=== PATIENT | female | born 1970 | race Caucasian/White ===

== ENCOUNTER 2017-07-19 11:17 | Emergency (ER) | payer SELFPAY ==
[2017-07-19] MEDS ORDERED: LORazepam 2 MG/ML VIAL ONE (11:30)
[2017-07-19] MEDS: LORazepam 2 MG/ML VIAL IVP ONE (11:36)
[2017-07-19 11:55] LABS: BASOPHILS % 0.5 (0.0-1.5); EOSINOPHILS % 1.3 % (0.0-6.8); MEAN CORPUSCULAR HEMOGLOBIN 27.6 pg (28.0-34.0); MEAN CORPUSCULAR VOLUME 87.3 fl (80.0-100.0); MONOCYTES % 4.1 % (0.0-11.0); NEUTROPHILS # 7.4 # k/uL (1.4-7.7)
[2017-07-19 12:11] LABS: eGFR (African) > 60; eGFR (Non-African) > 60
[2017-07-19] MEDS: FUROSEMIDE 40 MG/4 ML VIAL IVP ONE (13:01)
[2017-07-19] MEDS ORDERED: METOPROLOL TARTRATE 50 MG TABLET ONE (13:03)
[2017-07-19] MEDS: METOPROLOL SUCCINATE 50 MG TAB.ER.24H PO ONE (13:08)
--- NOTE | 2017-07-19 13:20 | ED Physician Documentation ---
Dyspnea - HISTORIAN Historian: patient, paramedics - HPI Stated Complaint: SOA Chief Complaint: General Adult Onset: minutes Duration: better Severity: moderate Further Comments: yes (Pt is a 47 yo female who became lightheaded and sob during her court hearing this am. Pt had mild nausea, but no chest pain and no diaphoresis. Pt has hx COPD, CHF, Anxiety, Depression, and HTN. Pt has a smoking hx, but now smokes about 1/2 ppd. Pt was dx'd with bronchitis last week , but was unable to afford to fill the abx medication rx'd. Pt had been on Lisionopril for HTN, but also has not filled this for some time due to cost.) - ROS CONST: other (anxious) EYES/ENT: none GI/: nausea (mild) MS/SKIN/LYMPH: none - PAST HX Lung Disease: COPD Cardiac Disease: CHF PE Risk Factors: hypertension Other History: other (Anxiety/Depression, HTN) Allergies/Adverse Reactions: Allergies Allergy/AdvReac Type Severity Reaction Status Date / Time No Known Allergies Allergy Verified 07/19/17 11:33 Home Medications: Ambulatory Orders Medication Instructions Recorded Ciprofloxacin HCl [Cipro] 500 mg PO BID #20 tablet 07/19/17 Metoprolol Tartrate [Lopressor] 50 mg PO BID #60 tablet 07/19/17 - SOCIAL HX Smoking History: cigarettes - FAMILY HX Family History: none - VITAL SIGNS Vital Signs: Vital Signs Temp Pulse Resp BP Pulse Ox 99.0 F 93 H 19 176/114 94 07/19/17 11:25 07/19/17 13:00 07/19/17 11:25 07/19/17 11:25 07/19/17 13:00 - REVIEWED ASSESSMENTS Nursing Assessment Reviewed: Yes Vitals Reviewed: Yes Progress - Progress Progress: Ativan 1 mg IV anxiety improved CXR: Bilateral hazy infiltrates with likely left base effusion. pro-BNP = 4548.5 Lasix 40 mg IV BP 176/114 Toprol 50 mg po BP 132/88 Rx Metoprolol 50 mg. Take one by mouth twice daily. Disp: 60 Refills: 5.. Rx Ciprofloxacin 500 mg. Take one every 12 hrs for 10 days. Follow up at [facility] Tel. [phone]. Call for next available appointment. Discuss shortness of breath, CHF, and hypertension. ED Results Lab/Radiology - Lab Results Lab Results: Lab Results 07/19/17 07/19/17 07/19/17 11:50 11:50 11:50 WBC RBC Hgb Hct MCV MCH MCHC RDW Plt Count Neut % (Auto) Lymph % (Auto) Nolan % (Auto) Eos % (Auto) Baso % (Auto) Neut # (Auto) Lymph # (Auto) Nolan # (Auto) Eos # (Auto) Baso # (Auto) Reactive Lymphs % Reactive Lymphs # Sodium 135 mmol/L L mmol/L (137-145) Potassium 3.4 mmol/L L mmol/L (3.5-5.1) Chloride 97 mmol/L L mmol/L (98-107) Carbon Dioxide 32 mmol/L H mmol/L (22-30) BUN 13 mg/dL mg/dL (7-17) Creatinine 0.90 mg/dL mg/dL (0.52-1.04) Estimated Creat Clear 331 Est GFR ( Amer) > 60 (60 - ) Est GFR (Non-Af Amer) > 60 (60 - ) Glucose 102 mg/dL mg/dL (74-106) Calcium 8.1 mg/dL L mg/dL (8.4-10.2) Total Bilirubin 0.7 mg/dL mg/dL (0.2-1.3) AST 22 U/L U/L (15-46) ALT 33 U/L U/L (13-69) Alkaline Phosphatase 107 U/L U/L (38-126) Creatine Kinase 40 U/L U/L (30-135) Troponin I 0.04 ng/mL ng/mL (0.03-0.06) NT-Pro-B Natriuret Pep 4548.5 pg/mL H pg/mL (15.0-125.0) Total Protein 6.9 g/dL g/dL (6.3-8.2) Albumin 3.1 g/dL L g/dL (3.5-5.0) 07/19/17 11:50 WBC 9.90 K/ul K/ul (4.00-12.00) RBC 6.02 M/ul H M/ul (3.90-5.20) Hgb 16.6 g/dL H g/dL (12.0-16.0) Hct 52.5 % H % (34.5-46.5) MCV 87.3 fl fl (80.0-100.0) MCH 27.6 pg L pg (28.0-34.0) MCHC 31.6 g/dL g/dL (30.0-36.0) RDW 15.6 % H % (11.3-14.3) Plt Count 220 K/mm3 K/mm3 (130-400) Neut % (Auto) 74.4 % % (39.0-79.0) Lymph % (Auto) 18.3 % % (16.0-50.0) Nolan % (Auto) 4.1 % % (0.0-11.0) Eos % (Auto) 1.3 % % (0.0-6.8) Baso % (Auto) 0.5 (0.0-1.5) Neut # (Auto) 7.4 # k/uL # k/uL (1.4-7.7) Lymph # (Auto) 1.8 # k/uL # k/uL (0.6-4.0) Nolan # (Auto) 0.4 # k/uL # k/uL (0.0-0.9) Eos # (Auto) 0.1 # k/uL # k/uL (0.0-0.6) Baso # (Auto) 0.0 # k/uL # k/uL (0.0-0.5) Reactive Lymphs % 1.4 % % (0.0-5.0) Reactive Lymphs # 0.1 # k/uL # k/uL (0.0-0.8) Sodium Potassium Chloride Carbon Dioxide BUN Creatinine Estimated Creat Clear Est GFR ( Amer) Est GFR (Non-Af Amer) Glucose Calcium Total Bilirubin AST ALT Alkaline Phosphatase Creatine Kinase Troponin I NT-Pro-B Natriuret Pep Total Protein Albumin - Orders Orders: ED Orders Category Date Time Status Continuous EKG monitoring Q30M Care 07/19/17 11:29 Active Continuous Pulse Oximetry Q30M Care 07/19/17 11:[address] IV Lock 1T Care 07/19/17 11:30 Active CHEST 1 VIEW [RAD] Stat Exams 07/19/17 11:29 Taken BNP [NT-proBNP] Stat Lab 07/19/17 11:50 Completed CBC/PLATELET/DIFF Routine Lab 07/19/17 11:50 Completed CMP Routine Lab 07/19/17 11:50 Completed CREATINE KINASE Routine Lab 07/19/17 11:50 Completed TROPONIN I (cTnI) Stat Lab 07/19/17 11:50 Completed Furosemide [Lasix] Med 07/19/17 12:48 Discontinued 40 mg IVP NOW ONE LORazepam [Ativan] Med 07/19/17 11:30 Discontinued 1 mg IVP NOW ONE LORazepam [Ativan] Med 07/19/17 11:30 Discontinued 2 mg .ROUTE .STK-MED ONE Metoprolol Succinate [Toprol Xl] Med 07/19/17 13:03 Discontinued 50 mg PO NOW ONE Metoprolol Tartrate [Lopressor] Med 07/19/17 13:03 Discontinued 50 mg .ROUTE .STK-MED ONE Oxygen Daily Oxygen 07/19/17 11:30 Ordered EKG WITH COMPARISON Stat Ther 07/19/17 11:29 Ordered Dyspnea Physical Exam - EXAM General Appearance: anxious EENT: pharynx normal Neck: nml inspection Respiratory: no resp. distress, other (distant breath sounds) CVS: reg. rate & rhythm, no murmur Abdomen: non-tender, no organomegaly, no distention Skin: color nml, no rash Extremities: non-tender, normal range of motion, no evidence of injury Neuro/Psych: oriented x3, motor nml, sensation nml, other (anxious) Discharge Clincal Impression: Dyspnea, CHF, possible infiltrate HTN (hypertension) Qualifiers: Hypertension type: unspecified Qualified Code(s): I10 - Essential (primary) hypertension Prescriptions: Ciprofloxacin HCl [Cipro] 500 mg PO BID #20 tablet Metoprolol Tartrate [Lopressor] 50 mg PO BID #60 tablet Referrals: Primary Doctor,No [Primary Care Provider] - 2 Days Condition: Stable Disposition: HOME, SELF-CARE Decision to Admit: NO Decision Time: 14:10
[2017-07-19] MEDS: CIPROFLOXACIN HCL 500 MG TABLET PO ONE (14:08)
[2017-07-19 14:13] VITALS: BP 154/102
--- NOTE | 2017-07-19 15:34 | Diagnostic Imaging Report ---
MAXIMILIANO SIMMS [facility] [address] [facility] [address] [place], [place]. [address] Report Submission Date: Jul 19, 2017 12:19:18 PM CDT Patient Study Name: AUGUSTINA SOMERS Date: Jul 19, 2017 12:04:05 PM CDT Modality Type: CR Gender: F Description: CHEST : 66 Institution: [facility] Physician: MAXIMILIANO SIMMS Examination: Portable chest History: Chest discomfort Comparison exam: None available Findings: Single view of the chest demonstrates a prominent cardiac and mediastinal silhouette. Tortuous aorta. Lung zheng demonstrate parenchymal haziness. Obscuration of the left lung base. Osseous structures are appropriate for age. Impression: Bilateral hazy infiltrates with likely left base effusion. Electronically signed on Jul 19, 2017 12:19:18 PM CDT by: Ernesto BARRIOS
== END 2017-07-19 14:10 | disposition home or self-care (01) ==
LOC: ED 11:17
DX: R06.00 Dyspnea, unspecified (principal); I50.9 Heart failure, unspecified; I10 Essential (primary) hypertension
CPT/HCPCS: 71010; 80053; 82550; 83880; 84484; 85025; J1940; J2060; 96374; 96375; 99284

== ENCOUNTER 2017-09-30 15:07 | Emergency (ER) | payer SELFPAY ==
--- NOTE | 2017-09-30 16:09 | ED Physician Documentation ---
Dyspnea - HISTORIAN Historian: patient - HPI Stated Complaint: bilat leg pain Chief Complaint: Lower Extremity Problem Additional Information: hx chf obesity now marked leg edema sob stasis dermatitis ulceration-only meds= metoprolol-continues to smoke Onset: other (progressive since before . Pt sstated not enough money for meds kathrin since [facility]) Duration: continues in ED, worse Initiating Event: upper respiratory illness (sob), out of meds, exposure to smoke Severity: moderate Exacerbated By: exertion, coughing, other (does not keep legs elevated and when she doed she sits upright w/chest-heart higher than legs) Associated Symptoms: chest discomfort, productive cough, leg pain, calf pain, anxiety - ROS CONST: recent illness, weakness EYES/ENT: none GI/: denies: abdominal pain, problems urinating, vomiting, nausea MS/SKIN/LYMPH: none - PAST HX Lung Disease: COPD, other (CHF ZAKI-NO C-PAP DEPRESSION ANXIETY COPC MORBID OBESITY [id number]) PE Risk Factors: hypertension, leg swelling. denies: hx DVT Surgeries/Procedures: other (C SECT) Allergies/Adverse Reactions: Allergies Allergy/AdvReac Type Severity Reaction Status Date / Time No Known Allergies Allergy Verified 09/30/17 15:33 Home Medications: Ambulatory Orders Medication Instructions Recorded Metoprolol Tartrate [Lopressor] 50 mg PO BID #60 tablet 07/19/17 Furosemide [Lasix] 20 mg PO DAILY 60 Days #30 tablet 09/30/17 Lisinopril [Zestril] 5 mg PO D #30 tablet 09/30/17 - SOCIAL HX Smoking History: less than 1 pack/day Alcohol Use: none Drug Use: none - FAMILY HX Family History: no significant history - VITAL SIGNS Vital Signs: Vital Signs Temp Pulse Resp BP Pulse Ox 98.2 F 82 28 H 213/111 94 09/30/17 15:21 09/30/17 15:21 09/30/17 15:21 09/30/17 15:21 09/30/17 15:21 - REVIEWED ASSESSMENTS Nursing Assessment Reviewed: Yes Vitals Reviewed: Yes ED Results Lab/Radiology - Radiology Radiology Impressions: cxr = cardiomegally suspect chf-correlates w/hi BNP - Orders Orders: ED Orders Category Date Time Status CHEST P.A.&LAT 2 VIEWS [RAD] Stat Exams 09/30/17 Ordered BNP [NT-proBNP] Stat Lab 09/30/17 Ordered CBC/PLATELET/DIFF Routine Lab 09/30/17 Ordered CMP Routine Lab 09/30/17 Ordered EKG WITH COMPARISON Stat Ther 09/30/17 Ordered Dyspnea Physical Exam - EXAM General Appearance: moderate distress EENT: eye inspection normal Neck: nml inspection Respiratory: speaks full sentences, decreased air movement, wheezes, rales, rhonchi. No: breath sounds nml, stridor, no pleuritic chest pain CVS: reg. rate & rhythm, no murmur Abdomen: non-tender, other (obesity) Skin: color nml, cyanosis (lower legs), ecchymosis, skin rash, decubitus, other (rubor draining sores legs). No: no rash (legs) Extremities: edema, tenderness. No: normal range of motion, no edema Neuro/Psych: oriented x3, motor nml, sensation nml, depressed mood/affect ( cries when talks about financial lives w/ childred dt lack funds-appears to not have aggresively sought assistance.) Discharge Clincal Impression: CHF, MORBID OBESITY, MILD AZOTEMIA, HTN Prescriptions: Furosemide [Lasix] 20 mg PO DAILY 60 Days #30 tablet Lisinopril [Zestril] 5 mg PO D #30 tablet Referrals: Primary Doctor,No [Primary Care Provider] - 2 Days Comments: USING LISINOPRIL FOR PRE LOAD AND AFTERLOAD-PT HAS MILD AZOTEMIA BUT BELIEVE MED SATIS AND THIS DOSE AND MILD AZOTEMIAALSO LASIX--TO SEE PCP VERY SOON OR RTED PRN F/U Condition: Fair Disposition: 01 HOME, SELF-CARE Decision to Admit: NO Decision Time: 17:52
[2017-09-30 16:40] LABS: BASOPHILS % 0.5 (0.0-1.5); EOSINOPHILS % 2.4 % (0.0-6.8); MEAN CORPUSCULAR HEMOGLOBIN 28.4 pg (28.0-34.0); MONOCYTES % 4.1 % (0.0-11.0); NEUTROPHILS # 6.9 # k/uL (1.4-7.7)
[2017-09-30 16:48] LABS: eGFR (African) > 60; eGFR (Non-African) > 60
--- NOTE | 2017-09-30 17:11 | Diagnostic Imaging Report ---
[facility] [address] [facility].[address] [address] Report Submission Date: Sep 30, 2017 4:54:37 PM TWISTER DOFFER Patient Study Name: AUGUSTINA SOMERS Date: Sep 30, 2017 4:32:14 PM TWISTER DOFFER Modality Type: CR Gender: F Description: CHEST : 66 Institution: [facility] Physician: JERALD WARREN Examination: PA and lateral chest. History: Evaluate lung zheng. Comparison exam: 19 July 2017 Findings: PA lateral chest demonstrate a enlarged cardiac silhouette. Prominent hilum. Generalized interstitial fullness. No blunting of the costophrenic margins or posterior sulci. Osseous structures are appropriate for age. Impression: Cardiomegaly with increased interstitial fullness suggesting increased volume status/congestive failure. Correlate clinically. Electronically signed on Sep 30, 2017 4:54:37 PM TWISTER DOFFER by: Ernesto BARRIOS
[2017-09-30 17:56] VITALS: BP 162/94
== END 2017-09-30 17:54 | disposition home or self-care (01) ==
LOC: ED 15:07
DX: I11.0 Hypertensive heart disease with heart failure (principal); I50.9 Heart failure, unspecified; E66.01 Morbid (severe) obesity due to excess calories; R79.89 Other specified abnormal findings of blood chemistry
CPT/HCPCS: 71020; 80053; 83880; 85025; 99283; S1016

== ENCOUNTER 2018-01-30 16:09 | Emergency (ER) | payer OTHER ==
--- NOTE | 2018-01-30 16:29 | ED Physician Documentation ---
General Adult - HISTORIAN Historian: patient - HPI Chief Complaint: General Adult Additional Information: 47yo white female who states that while at work today who became diaphoretic, dyspnea, and felt like her blood was going up. When BP was checked it was 171/ 146. - ROS CONST: no problems - PAST HX Past History: COPD, other (ZAKI, HTN, Chronic bronchitis, OA intermittent tachycardia) Surgeries/Procedures: none Immunizations: referred to PCP Allergies/Adverse Reactions: Allergies Allergy/AdvReac Type Severity Reaction Status Date / Time No Known Allergies Allergy Verified 01/30/18 16:34 Home Medications: Ambulatory Orders Medication Instructions Recorded Albuterol Sulfate [Proair 2 puff INH Q4 01/30/18 Respiclick] Amlodipine Besylate/Benazepril 2 tab PO DAILY 01/30/18 [Amlodipine-Benazepril 5-10 mg] Furosemide [Lasix] 90 mg PO TID 01/30/18 Lisinopril [Zestril] 40 mg PO D 01/30/18 Metformin HCl [Glumetza] 500 mg PO BID 01/30/18 Metoprolol Tartrate [Lopressor] 200 mg PO BID 01/30/18 Warfarin Sodium [Coumadin] 2.5 mg PO DAILY 01/30/18 - SOCIAL HX Smoking History: non-smoker Alcohol Use: none Drug Use: none - FAMILY HX Family History: Yes - VITAL SIGNS Vital Signs: Vital Signs Temp Pulse Resp BP Pulse Ox 162/94 09/30/17 17:54 - REVIEWED ASSESSMENTS Nursing Assessment Reviewed: Yes Vitals Reviewed: Yes Progress - Progress Progress: 1503 BP is down to normal, patient is feeling better. General Adult Physical Exam - PHYSICAL EXAM GENERAL APPEARANCE: no distress EENT: ENT inspection normal NECK: normal inspection, supple. No: lymphadenopathy, stiff neck RESPIRATORY: no resp distress, chest non-tender, breath sounds normal. No: wheezes, rales, rhonchi CVS: reg rate & rhythm, heart sounds normal, equal pulses, no murmur, no gallop ABDOMEN: soft, no organomegaly, normal bowel sounds, no abdominal bruit, no distension, non-tender BACK: normal inspection, no CVA tenderness SKIN: warm/dry EXTREMITIES: no edema NEURO: oriented X3, mood/affect nml, cognition normal Discharge Clincal Impression: Hypertension Qualifiers: Hypertension type: essential hypertension Qualified Code(s): I10 - Essential ( primary) hypertension Referrals: Primary Doctor,No [Primary Care Provider] - 2 Days Additional Instructions: Home and rest. Get established with a primary care provider to help regulate your medication and to monitor your blood pressure. If you have any further problems to return to the ED. Condition: Stable Disposition: 01 HOME, SELF-CARE Decision to Admit: NO Date of Decison to Admit: 01/30/18 Decision Time: 17:44
[2018-01-30 16:45] LABS: BASOPHILS % 0.5 (0.0-1.5); EOSINOPHILS % 1.6 % (0.0-6.8); MEAN CORPUSCULAR HEMOGLOBIN 29.1 pg (28.0-34.0); NEUTROPHILS # 7.4 # k/uL (1.4-7.7)
[2018-01-30 16:56] LABS: eGFR (African) > 60; eGFR (Non-African) > 60
[2018-01-30 18:02] VITALS: BP 138/86
== END 2018-01-30 18:00 | disposition home or self-care (01) ==
LOC: ED 16:09
DX: I10 Essential (primary) hypertension (principal)
CPT/HCPCS: 80053; 84484; 85025; 99282; S1016

== ENCOUNTER 2018-02-27 16:47 | Outpatient (CLI) | payer OTHER ==
[2018-02-27 17:21] LABS: BASOPHILS % 0.4 (0.0-1.5); EOSINOPHILS % 1.7 % (0.0-6.8); MEAN CORPUSCULAR HEMOGLOBIN 28.8 pg (28.0-34.0); MEAN CORPUSCULAR VOLUME 90.9 fl (80.0-100.0); MONOCYTES % 4.7 % (0.0-11.0); NEUTROPHILS # 5.3 # k/uL (1.4-7.7)
[2018-02-27 17:31] LABS: eGFR (African) > 60; eGFR (Non-African) > 60
--- NOTE | 2018-02-27 18:15 | Diagnostic Imaging Report ---
HERNESTO CANTOR [facility] [address] [facility] [address] [place] [address]. [id number] Report Submission Date: Feb 27, 2018 5:30:29 PM CDT Patient Study Name: AUGUSTINA SOMERS Date: Feb 27, 2018 4:59:27 PM CDT Modality Type: DX Gender: F Description: ABDOMEN : 66 Institution: [facility] Physician: HERNESTO CANTOR Obstructive series History: Abdominal pain Flat and upright views of the abdomen were obtained which demonstrate the presence of the gallbladder filled with numerable stones. No free air is seen. Lung bases are clear. The heart is enlarged. The bowel gas pattern is nonobstructive. Aside from gallstones, no abnormal calcifications are noted. Impression: Cholelithiasis. The gallbladder is filled with multiple stones. Cardiomegaly. Nonobstructive bowel gas pattern. Electronically signed on Feb 27, 2018 5:30:29 PM CDT by: Hermelinda BARRIOS
== END 2018-02-27 16:50 ==
LOC: LAB 16:47
PROVIDERS: ATTEND Physician Assistant
DX: R10.84 Generalized abdominal pain (principal)
CPT/HCPCS: 36415; 74019; 80053; 85025

== ENCOUNTER 2018-03-15 01:13 | Emergency (ER) | payer OTHER ==
[2018-03-15 01:52] LABS: BASOPHILS % 0.5 (0.0-1.5); EOSINOPHILS % 2.6 % (0.0-6.8); MEAN CORPUSCULAR HEMOGLOBIN 29.2 pg (28.0-34.0); MEAN CORPUSCULAR VOLUME 91.2 fl (80.0-100.0); MONOCYTES % 4.9 % (0.0-11.0); NEUTROPHILS # 6.3 # k/uL (1.4-7.7)
[2018-03-15 02:02] LABS: eGFR (African) > 60; eGFR (Non-African) > 60
[2018-03-15] MEDS ORDERED: MORPHINE SULFATE 10 MG/ML CARTRIDGE IVP ONE (02:02)
[2018-03-15] MEDS ORDERED: ONDANSETRON HCL/PF 4 MG/ 2ML VIAL IVP ONE (02:08)
--- NOTE | 2018-03-15 02:31 | ED Physician Documentation ---
General Adult - HISTORIAN Historian: patient - HPI Stated Complaint: ABD PAIN Chief Complaint: General Adult Additional Information: Recently diagnosed with gall stones. Has appointment today with Dr. Miller, surgeon, [facility]. Comes because an episode of increased abdominal pain began at 1530 yesterday. She has not taken any meds for this as she didn't know what to take. Points to entire right lower quadrant as site of pain, that feels like someone has hit her. The pain is not cramping and does not radiate. Last normal bowel movement just prior to arrival in ER. - ROS CONST: denies: fever - PAST HX Past History: hypertension, other (atrial fibrillation, ZAKI, COPD, NIDDM) Allergies/Adverse Reactions: Allergies Allergy/AdvReac Type Severity Reaction Status Date / Time No Known Allergies Allergy Verified 03/15/18 01:30 Home Medications: Ambulatory Orders Medication Instructions Recorded Albuterol Sulfate [Proair 2 puff INH Q4 01/30/18 Respiclick] Amlodipine Besylate/Benazepril 2 tab PO DAILY 01/30/18 [Amlodipine-Benazepril 5-10 mg] Furosemide [Lasix] 90 mg PO TID 01/30/18 Lisinopril [Zestril] 40 mg PO D 01/30/18 Metformin HCl [Glumetza] 500 mg PO BID 01/30/18 Metoprolol Tartrate [Lopressor] 200 mg PO BID 01/30/18 Warfarin Sodium [Coumadin] 2.5 mg PO DAILY 01/30/18 - SOCIAL HX Smoking History: cigarettes (1/2 PPD since 14 y/o) - FAMILY HX Family History: No - VITAL SIGNS Vital Signs: Vital Signs Temp Pulse Resp BP Pulse Ox 98.2 F 101 H 20 144/85 94 03/15/18 01:13 03/15/18 01:13 03/15/18 01:13 03/15/18 01:13 03/15/18 01:13 - REVIEWED ASSESSMENTS Nursing Assessment Reviewed: Yes Vitals Reviewed: Yes Progress - Progress Progress: 0238, better after romulo MERCER. Placed on O2 per RN. Pulse ox on ambient air 91- 92%. ED Results Lab/Radiology - Lab Results Lab Results: Lab Results 03/15/18 03/15/18 03/15/18 01:59 01:48 01:48 WBC 10.10 K/ul K/ul (4.00-12.00) RBC 5.37 M/ul H M/ul (3.90-5.20) Hgb 15.7 g/dL g/dL (12.0-16.0) Hct 49.0 % H % (34.5-46.5) MCV 91.2 fl fl (80.0-100.0) MCH 29.2 pg pg (28.0-34.0) MCHC 32.0 g/dL g/dL (30.0-36.0) RDW 14.9 % H % (11.3-14.3) Plt Count 222 K/mm3 K/mm3 (130-400) Neut % (Auto) 62.2 % % (39.0-79.0) Lymph % (Auto) 28.4 % % (16.0-50.0) Tyler % (Auto) 4.9 % % (0.0-11.0) Eos % (Auto) 2.6 % % (0.0-6.8) Baso % (Auto) 0.5 (0.0-1.5) Neut # (Auto) 6.3 # k/uL # k/uL (1.4-7.7) Lymph # (Auto) 2.8 # k/uL # k/uL (0.6-4.0) Tyler # (Auto) 0.5 # k/uL # k/uL (0.0-0.9) Eos # (Auto) 0.3 # k/uL # k/uL (0.0-0.6) Baso # (Auto) 0.0 # k/uL # k/uL (0.0-0.5) Reactive Lymphs % 1.4 % % (0.0-5.0) Reactive Lymphs # 0.1 # k/uL # k/uL (0.0-0.8) PT 11.3 Seconds Seconds (9.4-11.6) INR 1.08 (0.9-1.2) Sodium 135 mmol/L L mmol/L (136-145) Potassium 3.7 mmol/L mmol/L (3.5-5.1) Chloride 98 mmol/L mmol/L (98-107) Carbon Dioxide 30 mmol/L mmol/L (22-30) BUN 17 mg/dL mg/dL (7-17) Creatinine 1.30 mg/dL H mg/dL (0.52-1.04) Estimated Creat Clear 106 Est GFR ( Amer) > 60 (60 - ) Est GFR (Non-Af Amer) > 60 (60 - ) Glucose 132 mg/dL H mg/dL (74-106) Calcium 8.8 mg/dL mg/dL (8.4-10.2) Total Bilirubin 0.4 mg/dL mg/dL (0.2-1.3) AST 19 U/L U/L (15-46) ALT 23 U/L U/L (13-69) Alkaline Phosphatase 105 U/L U/L (38-126) Total Protein 7.3 g/dL g/dL (6.3-8.2) Albumin 3.7 g/dL g/dL (3.5-5.0) - Orders Orders: ED Orders Category Date Time Status Place IV Lock 1T Care 03/15/18 01:46 Active CBC/PLATELET/DIFF Routine Lab 03/15/18 01:48 Completed CMP Routine Lab 03/15/18 01:48 Completed PT [PT-INR] Routine Lab 03/15/18 01:59 Completed UA [URINALYSIS] Routine Lab 03/15/18 Ordered Morphine Sulfate Med 03/15/18 02:02 Discontinued 4 mg IVP NOW ONE Ondansetron HCl/Pf [Zofran 4 mg/2 ml] Med 03/15/18 02:08 Discontinued 4 mg IVP NOW ONE General Adult Physical Exam - PHYSICAL EXAM GENERAL APPEARANCE: obese EENT: eye inspection normal, ENT inspection normal NECK: normal inspection, supple RESPIRATORY: no resp distress, breath sounds normal CVS: reg rate & rhythm, heart sounds normal ABDOMEN: soft, normal bowel sounds, tenderness ([place] ) BACK: normal inspection, no CVA tenderness, other (no vertebral tenderness) SKIN: warm/dry, normal color, other (lower extremities with increased pigmentation) EXTREMITIES: no evidence of injury NEURO: CN's nml as tested, motor nml, sensation nml, cognition normal Discharge Clincal Impression: Abdominal pain Qualifiers: Abdominal location: right lower quadrant Qualified Code(s): R10.31 - Right lower quadrant pain Referrals: Primary Doctor,No [Primary Care Provider] - 2 Days Additional Instructions: Keep your appointment with Dr. Miller today. Condition: Fair Disposition: 01 HOME, SELF-CARE Decision to Admit: NO Decision Time: 02:38
[2018-03-15 03:00] VITALS: BP 149/87
== END 2018-03-15 02:54 | disposition home or self-care (01) ==
LOC: ED 01:13
DX: R10.31 Right lower quadrant pain (principal)
CPT/HCPCS: 80053; 85025; 85610; J2270; J2405; 96374; 96375; 99284; S1016

== ENCOUNTER 2018-03-18 19:21 | Emergency (ER) | payer OTHER ==
--- NOTE | 2018-03-18 19:25 | ED Physician Documentation ---
Abdominal Pain - HISTORIAN Historian: patient - HPI Stated Complaint: RUQ pain - gallstones Chief Complaint: Abdominal Pain Onset: other (5 oclock this am the pain started to be "way worse" ) Duration: none Timing: worse Context: denies: out of country travel, bad food, recent trauma Severity: moderate (8 on 1/10 scale ) Quality: cramping, sharp Associated Symptoms: nausea. denies: fever, chills, vomiting, diarrhea Exacerbated by: nothing Relieved by: nothing Further Comments: yes (She reports she was told last week she had gallstones and she had a surgeon appt last week although she reports she did not make that appt and the pain continues. The pain started to increase this am around 0500 and she has not tried any OTC meds for pain . She is not sure if this is associated with any foods or not eating vs eating. She does have a second appt set up for the surgeon Next per her report.) - ROS CONST: no problems GI/: none CVS/RESP: none EYES/ENT: none MS/SKIN/LYMPH: none NEURO/PSYCH: none - SOCIAL HX Smoking History: cigarettes Alcohol Use: none Drug Use: none - FAMILY HX Family History: none - PAST HX Past History: other (gallstones ) Ischemic Bowel Risk Factors: A-Fib Surgeries/Procedures: Immunizations: UTD Home Medications: Ambulatory Orders Medication Instructions Recorded Amlodipine Besylate/Benazepril 10 mg PO DAILY 01/30/18 [Amlodipine-Benazepril 5-10 mg] Furosemide [Lasix] 40 mg PO DAILY 01/30/18 Lisinopril [Zestril] 40 mg PO D 01/30/18 Metformin HCl [Glumetza] 500 mg PO BID 01/30/18 Metoprolol Tartrate [Lopressor] 100 mg PO BID 01/30/18 Warfarin Sodium [Coumadin] 2.5 mg PO DAILY 01/30/18 Allergies/Adverse Reactions: Allergies Allergy/AdvReac Type Severity Reaction Status Date / Time No Known Allergies Allergy Verified 03/15/18 01:30 - VITAL SIGNS Vital Signs: Vital Signs Temp Pulse Resp BP Pulse Ox 97.5 F L 88 18 157/101 98 03/18/18 20:49 03/18/18 20:49 03/18/18 20:49 03/18/18 20:49 03/18/18 20:49 - REVIEWED ASSESSMENTS Nursing Assessment Reviewed: Yes Vitals Reviewed: Yes Progress - Progress Progress: 2039: Pain is decreased 3 on 1/10 scale. She states her nausea is relieved. She is ready to go home DG ED Results Lab/Radiology - Lab Results Lab Results: Lab Results 03/18/18 03/18/18 19:54 19:54 WBC 9.40 K/ul K/ul (4.00-12.00) RBC 5.88 M/ul H M/ul (3.90-5.20) Hgb 17.0 g/dL H g/dL (12.0-16.0) Hct 52.8 % H % (34.5-46.5) MCV 89.8 fl fl (80.0-100.0) MCH 29.0 pg pg (28.0-34.0) MCHC 32.3 g/dL g/dL (30.0-36.0) RDW 14.6 % H % (11.3-14.3) Plt Count 256 K/mm3 K/mm3 (130-400) Neut % (Auto) 69.3 % % (39.0-79.0) Lymph % (Auto) 23.6 % % (16.0-50.0) [place] % (Auto) 3.8 % % (0.0-11.0) Eos % (Auto) 1.7 % % (0.0-6.8) Baso % (Auto) 0.5 (0.0-1.5) Neut # (Auto) 6.5 # k/uL # k/uL (1.4-7.7) Lymph # (Auto) 2.2 # k/uL # k/uL (0.6-4.0) [place] # (Auto) 0.4 # k/uL # k/uL (0.0-0.9) Eos # (Auto) 0.2 # k/uL # k/uL (0.0-0.6) Baso # (Auto) 0.0 # k/uL # k/uL (0.0-0.5) Reactive Lymphs % 1.3 % % (0.0-5.0) Reactive Lymphs # 0.1 # k/uL # k/uL (0.0-0.8) Sodium 135 mmol/L L mmol/L (136-145) Potassium 3.6 mmol/L mmol/L (3.5-5.1) Chloride 98 mmol/L mmol/L (98-107) Carbon Dioxide 29 mmol/L mmol/L (22-30) BUN 15 mg/dL mg/dL (7-17) Creatinine 0.90 mg/dL mg/dL (0.52-1.04) Estimated Creat Clear 154 Est GFR ( Amer) > 60 (60 - ) Est GFR (Non-Af Amer) > 60 (60 - ) Glucose 86 mg/dL mg/dL (74-106) Calcium 9.2 mg/dL mg/dL (8.4-10.2) Total Bilirubin 0.6 mg/dL mg/dL (0.2-1.3) AST 17 U/L U/L (15-46) ALT 28 U/L U/L (13-69) Alkaline Phosphatase 113 U/L U/L (38-126) Total Protein 8.2 g/dL g/dL (6.3-8.2) Albumin 4.0 g/dL g/dL (3.5-5.0) - Orders Orders: ED Orders Category Date Time Status IV Started NOW Care 03/18/18 19:49 Active CBC/PLATELET/DIFF Stat Lab 03/18/18 19:54 Completed CMP Stat Lab 03/18/18 19:54 Completed UA W/MICRO IF INDICATED Routine Lab 03/18/18 19:40 Ordered 0.9 % Sodium Chloride [Normal Saline] 1,000 ml Med 03/18/18 19:49 Discontinued IV Q1H Morphine Sulfate [DepoDUR] Med 03/18/18 19:51 Discontinued 4 mg IVP NOW ONE Ondansetron HCl Rapdis [Zofran Odt] Med 03/18/18 19:52 Discontinued 4 mg PO NOW ONE Abdominal Pain Physical Exam - Physical Exam General Appearance: no acute distress, alert EENT: eye inspection normal, ENT inspection normal RESPIRATORY: no resp distress, chest non-tender, breath sounds normal CVS: reg rate & rhythm, heart sounds normal, equal pulses, no murmur ABDOMEN: soft, normal bowel sounds, tenderness (with palpation on RUQ ). No: McBurney's point tenderne BACK: normal inspection, no CVA tenderness SKIN: warm/dry, normal color EXTREMITIES: non-tender, normal range of motion, no evidence of injury, no edema NEURO: oriented X3, CN's nml as tested, motor nml, sensation nml, mood/affect nml, cognition normal Vital Signs: Vital Signs Temp Pulse Resp BP Pulse Ox 97.5 F L 88 18 157/101 98 03/18/18 20:49 03/18/18 20:49 03/18/18 20:49 03/18/18 20:49 03/18/18 20:49 Discharge Clincal Impression: Abdominal pain Qualifiers: Abdominal location: right upper quadrant Qualified Code(s): R10.11 - Right upper quadrant pain Referrals: Primary Doctor,No [Primary Care Provider] - 2 Days Additional Instructions: 1. Keep follow up with specialist 2. Increase fluid intake 3. Upson diet 4. See PCP in 2-4 days if needed 5. Return to ER for any concerns Condition: Stable Disposition: 01 HOME, SELF-CARE Decision to Admit: NO Date of Decison to Admit: 03/18/18 Decision Time: 20:44
[2018-03-18] MEDS ORDERED: 0.9 % SODIUM CHLORIDE 1,000 ML IV ONE (19:49)
[2018-03-18] MEDS ORDERED: MORPHINE SULFATE 4 MG/ML PREFILLED SYR IVP ONE (19:51)
[2018-03-18] MEDS ORDERED: ONDANSETRON HCL 4 MG TAB.RAPDIS PO ONE (19:52)
[2018-03-18 20:28] LABS: BASOPHILS % 0.5 (0.0-1.5); EOSINOPHILS % 1.7 % (0.0-6.8); MEAN CORPUSCULAR VOLUME 89.8 fl (80.0-100.0); MONOCYTES % 3.8 % (0.0-11.0); NEUTROPHILS # 6.5 # k/uL (1.4-7.7)
[2018-03-18 20:37] LABS: eGFR (African) > 60; eGFR (Non-African) > 60
[2018-03-18 20:54] VITALS: BP 157/101
[2018-03-19 07:36] LABS: APPEARANCE,URINE CLEAR (CLEAR); COLOR,URINE YELLOW (YELLOW); OCCULT BLOOD,URINE NEGATIVE (NEGATIVE); UROBILINOGEN URINE 0.2 Eu (0.2-1.0)
== END 2018-03-18 20:54 | disposition home or self-care (01) ==
LOC: ED 19:21
DX: R10.11 Right upper quadrant pain (principal)
CPT/HCPCS: 80053; 81002; 85025; A9270; J2270; 96374; 99284; S1016

== ENCOUNTER 2018-04-15 01:37 | Emergency (ER) | payer OTHER ==
[2018-04-15] MEDS ORDERED: CEPHALEXIN 250 MG/5 ML BTL PO ONE (01:59)
[2018-04-15] MEDS ORDERED: methylPREDNISolone ACETATE 80 MG/ML VIAL IM STA (01:59)
[2018-04-15] MEDS ORDERED: CEPHALEXIN 250 MG CAPSULE ONE (02:08)
--- NOTE | 2018-04-15 02:08 | ED Physician Documentation ---
General Adult - HISTORIAN Historian: patient - HPI Chief Complaint: General Adult Additional Information: pt noted small area painful erythema rt inf abdomen 2 d ago has continued to expand to now cover inf abd below umbilicus to pubes and bilat to lat abd. pt has significantg apron obesity her cbai=393. other vitals are normal. the area cellul;itis is warm to touch and slightly tender to touch. this started as "an ingrown hair" she has not had similar before. Onset: days ago (2-3) Timing: worse, worse since Severity: moderate - ROS CONST: no problems (pt is afebrile) EYES/ENT: none CVS/RESP: none, other (prev had asthma like but has been taken) GI/: none MS/SKIN/LYMPH: rash, other (as w/ c/c) NEURO/PSYCH: denies: headache, difficulty with speech - PAST HX Past History: asthma, COPD, CHF, hypertension, other (at fib) Surgeries/Procedures: other (pt scheduleld for gall bladder near future) Allergies/Adverse Reactions: Allergies Allergy/AdvReac Type Severity Reaction Status Date / Time No Known Allergies Allergy Verified 04/15/18 02:18 Home Medications: Ambulatory Orders Medication Instructions Recorded Amlodipine Besylate/Benazepril 10 mg PO DAILY 01/30/18 [Amlodipine-Benazepril 5-10 mg] Furosemide [Lasix] 40 mg PO DAILY 01/30/18 Lisinopril [Zestril] 40 mg PO D 01/30/18 Metformin HCl [Glumetza] 500 mg PO BID 01/30/18 Metoprolol Tartrate [Lopressor] 100 mg PO BID 01/30/18 Warfarin Sodium [Coumadin] 2.5 mg PO DAILY 01/30/18 - SOCIAL HX Smoking History: less than 1 pack/day Alcohol Use: none Drug Use: none - FAMILY HX Family History: No - VITAL SIGNS Vital Signs: Vital Signs Temp Pulse Resp BP Pulse Ox 157/101 03/18/18 20:49 - REVIEWED ASSESSMENTS Nursing Assessment Reviewed: Yes Vitals Reviewed: Yes ED Results Lab/Radiology - Orders Orders: ED Orders Category Date Time Status Cephalexin [Keflex] Med 04/15/18 01:59 Once 1,000 mg PO NOW ONE Chem Sticks Med 04/15/18 02:00 Ordered 1 each [facility] CHE[facility] methylPREDNISolone ACETATE [Depo-Medrol] Med 04/15/18 01:59 Stat 80 mg IM NOW STA General Adult Physical Exam - PHYSICAL EXAM GENERAL APPEARANCE: moderate distress EENT: eye inspection normal NECK: normal inspection, supple. No: lymphadenopathy RESPIRATORY: no resp distress, chest non-tender, wheezes, rales. No: breath sounds normal CVS: reg rate & rhythm, heart sounds normal ABDOMEN: soft, non-tender (except inarea of cellulitis) BACK: normal inspection SKIN: warm/dry, normal color. No: cyanosis, diaphoresis, jaundice, mottled EXTREMITIES: non-tender, normal range of motion, no evidence of injury NEURO: oriented X3, motor nml, sensation nml, mood/affect nml Discharge Clincal Impression: cellulitis lower deanne-apron obesity, diabetes-copd Referrals: Primary Doctor,No [Primary Care Provider] - 2 Days Comments: keep close check diabetes-rec dc cigarettes-must f/u w/pcp very soon Condition: Good Disposition: 01 HOME, SELF-CARE Decision to Admit: NO Decision Time: 02:32
[2018-04-15] MEDS ORDERED: CEPHALEXIN 250 MG CAPSULE PO ONE (02:10)
[2018-04-15 05:39] VITALS: BP 118/68
== END 2018-04-15 02:36 | disposition home or self-care (01) ==
LOC: ED 01:37
DX: L03.311 Cellulitis of abdominal wall (principal); E66.9 Obesity, unspecified; E11.9 Type 2 diabetes mellitus without complications; J44.9 Chronic obstructive pulmonary disease, unspecified
CPT/HCPCS: 96372; 99284; J1040

== ENCOUNTER 2019-07-30 17:29 | Emergency (ER) | payer SELFPAY ==
--- NOTE | 2019-07-30 17:31 | ED Physician Documentation ---
General Adult - HISTORIAN Historian: patient - HPI Stated Complaint: known COPD out of meds HTN out of meds Chief Complaint: General Adult Further Comments: yes (She is a known Hypertensive, COPD pt and she is not taking meds "For a while" she reports she cannot afford the meds. She does smoke. Denies a fever. She has had cough and shortness of air she has no other complaints) - PAST HX Allergies/Adverse Reactions: Allergies Allergy/AdvReac Type Severity Reaction Status Date / Time No Known Allergies Allergy Verified 07/30/19 18:46 Home Medications: Ambulatory Orders Medication Instructions Recorded Amlodipine Besylate/Benazepril 10 mg PO DAILY 01/30/18 [Amlodipine-Benazepril 5-10 mg] Furosemide [Lasix] 40 mg PO DAILY 01/30/18 Lisinopril [Zestril] 40 mg PO D 01/30/18 Metformin HCl [Glumetza] 500 mg PO BID 01/30/18 Metoprolol Tartrate [Lopressor] 100 mg PO BID 01/30/18 Warfarin Sodium [Coumadin] 2.5 mg PO DAILY 01/30/18 - VITAL SIGNS Vital Signs: Vital Signs Temp Pulse Resp BP Pulse Ox 118/68 04/15/18 02:42 Progress - Progress Progress: 1840: she is more loose on lung sounds post neb and she states she is feeling better. She is not taking any meds HX of Afib DM, HTN, COPD DG 1919: Discussed care with Dr Ceja he will admit DG ED Results Lab/Radiology - Radiology Radiology Impressions: Chest 2 views Date of Exam: July 30, 2019. History: SOA X 2 DAYS; HX OF CHF AND A-FIB (Hx) / Findings: No comparison studies are provided. There is cardiomegaly. The trachea is midline and aortic arch contour is normal. There is mild pulmonary vascular congestion. Impression: Cardiomegaly and mild pulmonary vascular congestion. Electronically signed on Jul 30, 2019 7:08:17 PM CRECHE ATTENDANT by: Betsy Rosario General Adult Physical Exam - PHYSICAL EXAM GENERAL APPEARANCE: mild distress EENT: eye inspection normal, pharynx normal, no signs of dehydration NECK: normal inspection RESPIRATORY: chest non-tender, wheezes, rhonchi CVS: reg rate & rhythm, heart sounds normal ABDOMEN: soft, normal bowel sounds, no distension, non-tender BACK: normal inspection SKIN: warm/dry, normal color EXTREMITIES: non-tender, normal range of motion, no edema NEURO: oriented X3 Discharge Referrals: Primary Doctor,No [Primary Care Provider] - 2 Days
[2019-07-30 18:10] LABS: BASOPHILS % 0.5 % (0.0-1.5); NEUTROPHILS # 7.2 # k/uL (1.4-7.7)
[2019-07-30] MEDS: IPRATROPIUM/ALBUTEROL SULFATE 3 ML AMPUL.NEB NEB ONE (18:10)
[2019-07-30] MEDS: methylPREDNISolone SOD SUCC 125 MG/2 ML VIAL IVP ONE (18:12)
[2019-07-30 18:29] LABS: eGFR (Non-African) > 60
[2019-07-30] MEDS: cefTRIAXone SODIUM 1 GM in 0.9 % SODIUM CHLORIDE 50 ML IV ONE (19:50)
[2019-07-30 23:43] VITALS: BP 188/98
== END 2019-07-30 19:45 | disposition other institution (70) ==
LOC: ED 17:29
DX: Z91.14 Patient's other noncompliance with medication regimen (principal)
CPT/HCPCS: 71046; 80053; 83880; 85025; 93005; 94640; 96361; 96374; 99282; 99284; J0696; J2930; S1016

== ENCOUNTER 2019-07-30 19:30 | Inpatient (IN) | payer SELFPAY ==
[2019-07-30 20:31] VITALS: BMI 48.2
[2019-07-30] MEDS ORDERED: AZITHROMYCIN 500 MG in 0.9 % SODIUM CHLORIDE 250 ML IV SCH (21:00)
--- NOTE | 2019-07-30 21:12 | History and Physical Report ---
History of Present Illnes - History of Present Illness Reason for Visit: dyspnea History of Present Illness: 49yo female who states that she has a history of COPD, CHF, asthma, atrial fibrillation, diabetes type 2, hypertension, and chronic bronchitis. She had chronic dyspnea with exertion. Patient states that she started to have some increasing SOB and dyspnea over the last 24 hours. - Past Medical History Cardiac: AFIB (in NSR by EKG at this time, was on coumadin at one time but stopped it herself), CHF, HTN Pulmonary: Asthma (no rescur inhalers at home), COPD, Sleep Apnea (obstructive, use to have CPAP butlost it some time ago) Musculoskeletal: Osteoarthritis Endocrine: Diabetes (type 2) - Past Surgical History Past Surgical History: - Past Family History Father Family History: (she does not know anything about his health or cause fo ) Mother Family History: Cancer (brain cancer, unknown type), (H) - Past Social History Smoke: # pack years (30), <1 pack per day (7-8 cigarettes/day) Alcohol: None Drugs: None Lives: With Family Domestic Violence: Negative - Health Maintenance Health Maintenance: Mammogram (last one many years ago). denies: Cholesterol, Influenza Vaccine, Pneumococcal Vaccine, Colonoscopy Influenza Vaccine: No Pneumonia Vaccine: No Resuscitation Status: Resusciation Status Resuscitation Status Full Code - Unable to Obtain History Unable to Obtain: No Review of Systems - Review of Systems Constitutional: negative: Fever, Chills Eyes: negative: vision change ENT: negative: Ear Pain, Ear Discharge, Nose Pain, Nose Discharge, Nose Congestion, Mouth Pain Respiratory: Cough, Shortness of Breath, SOB with Excertion, Sputum, Wheezing. negative: Dry Cardiovascular: negative: Chest Pain, Palpitations, Orthopnea, Light Headedness Gastrointestinal: negative: Nausea, Vomiting, Abdominal Pain, Diarrhea, Constipation, Melena, Hematochezia Genitourinary: negative: Dysuria, Frequency, Incontinence, Hematuria Musculoskeletal: Back Pain Skin: negative: Rash Neurological: negative: Weakness, Numbness, Incoordination, Change in Speech, Confusion, Seizures - Medications/Allergies Allergies/Adverse Reactions: Allergies Allergy/AdvReac Type Severity Reaction Status Date / Time No Known Allergies Allergy Verified 07/30/19 18:46 Current Inpatient Medications: Current Inpatient Medications Albuterol/Ipratropium (Duoneb) 3 ml NEB Q4 ABDIEL Stop: 08/29/19 20:59 Enoxaparin Sodium (Lovenox) 40 mg SQ DAILY ABDIEL Stop: 08/13/19 20:59 Furosemide (Lasix) 40 mg IVP Q12 ABDIEL Stop: 08/29/19 20:59 Azithromycin 500 mg/ Sodium (Chloride) 250 mls @ 250 mls/hr IV Q24H ABDIEL Stop: 08/03/19 21:59 Methylprednisolone Sodium Succinate (Solu-Medrol) 80 mg IVP Q12 ABDIEL Stop: 08/29/19 20:59 Miscellaneous (Chem Sticks) 1 each MC CHEMQ ABDIEL Stop: 08/30/19 07:29 Exam - Exam Vital Signs: Vital Signs (72 hours) 07/30/19 07/30/19 07/30/19 18:30 20:00 20:24 Temperature 97.7 F 97.7 F Pulse Rate [ 79 79 Right] Respiratory 22 22 Rate Blood Pressure 230/109 Blood Pressure 230/109 199/93 199/93 [Right Arm] O2 Sat by Pulse 95 95 Oximetry General: Alert, Oriented to Person, Oriented to Place, Oriented to Time, Cooperative, Moderate distress HEENT: Atraumatic, PERRLA, EOMI, Mouth Mucous membr. moist/[place], Nose Mucous membr. moist/[place] Neck: Normal Range of Motion Carotids: WNL Thyroid: WNL Lungs: Speaks full Sentences, Wheezes (mild). No: Rales, Rhonchi Cardiovascular: Regular rate, Normal S1, Normal S2, No murmurs Abdomen: Normal bowel sounds, Soft, No tenderness, No hepatospenomegaly, No masses, Other (obeses) Integumentary: Normal, [place], Warm, Dry Extremities: No clubbing, No cyanosis, Normal pulses, No tenderness/swelling, Other (trace edema) Neurological: Normal gait, Normal speech, Strength Equal Bilat, Normal tone, Sensation intact, Cranial nerves 3-12 NL, Reflexes 2+ Psych/Mental Status: Mental status NL, Mood NL, Appropriate Affect, Intact Judgment - Interpretation/Data Interpretation/Data: EKG: NSR possible old anterior/septal LA Assessment/Plan - Assessment/Plan (1) Acute exacerbation of COPD with asthma Status: Acute Current Visit: Yes Assessment: Patient was given Solumedrol in the ED and has been started on 80mg IV q 12 hours, Duoneb q 4 hours, supplemental oxygen at 3L/NC. IV antibiotics given for possible bronchitis. (2) Obstructive sleep apnea Status: Chronic Current Visit: Yes Assessment: Will see if we can find old sleep study to get a new CPAP machine or order new sleep study. Monitor O2 sats. (3) Essential hypertension Status: Chronic Current Visit: Yes Assessment: BP is high, will start on lisinopril. Patient give apresoline tonight. (4) History of atrial fibrillation Status: Resolved Current Visit: Yes Assessment: Patient is in NSR at this time. Will monitor. (5) Diabetes type 2, controlled Status: Chronic Current Visit: Yes Qualifiers: Diabetes mellitus intermediate card tender insulin use: without intermediate card tender use Diabetes mellitus complication status: without complication Qualified Code(s): E11.9 - Type 2 diabetes mellitus without complications Assessment: Will monitor BS (6) Hx of acute congestive heart failure Status: Acute Current Visit: Yes Assessment: Mild pulmonary congestion on CXR. Patient has been started on IV lasix, will monitor electrolytes. VTE Assessment - RISK FACTOR SCORE VTE RISK FACTOR SCORES: AGE 40-60 YEARS, OBESITY, ANTICIPATED BED CONFINEMENT OR IMMOBILIZATION > 24 HOURS - RISK VTE HIGH RISK: SCORE OF 3-4 (RISK PROXIMAL DVT 4-8%) PROPHYLAXIS NEEDED
[2019-07-30] MEDS: hydrALAZINE HCL 25 MG TABLET PO SCH (21:41)
[2019-07-30] MEDS: SODIUM CHLORIDE 0.9 % (FLUSH) 10 ML DISP.SYRIN IV SCH (21:43)
[2019-07-30] MEDS ORDERED: 0.9 % SODIUM CHLORIDE 250 ML IV ONE (21:48)
[2019-07-30] MEDS ORDERED: AZITHROMYCIN 500 MG VIAL IV ONE (21:48)
[2019-07-30] MEDS: IPRATROPIUM/ALBUTEROL SULFATE 3 ML AMPUL.NEB NEB SCH (22:15)
[2019-07-30] MEDS: ENOXAPARIN SODIUM 40 MG/0.4 ML DISP.SYRIN SQ SCH (22:31)
[2019-07-30] MEDS: FUROSEMIDE 40 MG/4 ML VIAL IVP SCH (22:31)
[2019-07-30] MEDS: methylPREDNISolone SOD SUCC 40 MG/ML VIAL IVP SCH (22:39)
[2019-07-31] MEDS: IPRATROPIUM/ALBUTEROL SULFATE 3 ML AMPUL.NEB NEB SCH ×4 (02:00→12:38)
--- NOTE | 2019-07-31 07:25 | Diagnostic Imaging Report ---
PATIENT MR#: [id number] PATIENT PATIENT NAME: AUGUSTINA SOMERS DATE OF : 1970 REFERRING PHYSICIAN: Lawrence Ceja EXAM DATE: 07/31/2019 ACCESSION NUMBER: [id number] EXAM DESCRIPTION: CHEST 2VIEW HISTORY: 49-year-old female with COPD COMPARISON: 07/30/2019 TECHNIQUE: 2 views of the chest were performed. FINDINGS: Cardiomegaly and mild central pulmonary vascular congestion are re-identified. No pneumoth orax or new infiltrates. The lungs are hyperexpanded with flattening of the diaphragm on the lateral film. Ther e is mild thoracic degenerative disc disease. IMPRESSION: 1. Cardiomegaly and mild central pulmonary vascular congestion, consistent with mild CHF. 2. Pulmonary hyperexpansion suggestive of COPD. Read by: Dr. Yvse Alanis Transcribed by: Transcribed Date: Electronically signed by: Dr. Yves Alanis Date signed: 07/31/2019 7:24:47 AM
[2019-07-31 07:45] LABS: BASOPHILS % 0.2 % (0.0-1.5); NEUTROPHILS # 6.5 # k/uL (1.4-7.7)
[2019-07-31 07:46] LABS: SEGMENTED NEUTROPHILS % 96 % (39-79)
[2019-07-31 07:49] LABS: eGFR (Non-African) > 60
[2019-07-31] MEDS: ENOXAPARIN SODIUM 40 MG/0.4 ML DISP.SYRIN SQ SCH (08:41)
[2019-07-31] MEDS: SODIUM CHLORIDE 0.9 % (FLUSH) 10 ML DISP.SYRIN IV SCH (08:41)
[2019-07-31] MEDS: methylPREDNISolone SOD SUCC 40 MG/ML VIAL IVP SCH (08:42)
[2019-07-31] MEDS: hydrALAZINE HCL 25 MG TABLET PO SCH (08:44)
[2019-07-31] MEDS: FUROSEMIDE 40 MG/4 ML VIAL IVP SCH (08:44)
--- NOTE | 2019-07-31 08:46 | Inpatient Progress Note ---
Subjective - Required Recertification Statement I anticipate X number of days because-include discharge plan: 1 day - Review of Systems Events since last encounter: Patient states that she is feeling much better today. She is still wheezing some. Has been ambulating some better. No chest pain or pressure noted. Productive cough is some better. General: Denies: Chills Pulmonary: Dyspnea, Cough. Denies: Pleuritic Chest Pain Cardiovascular: Denies: Chest Pain, Palpitations Gastrointestinal: Denies: Nausea, Vomiting, Abdominal Pain Objective - Exam Vitals and I&O: Vital Signs Temp 98.2 F 07/31/19 05:35 Pulse 91 H 07/31/19 07:00 Resp 20 07/31/19 05:35 BP 163/75 07/31/19 05:35 Pulse Ox 94 07/31/19 05:35 Intake & Output 07/30/19 07/30/19 07/31/19 11:59 23:59 11:59 Intake Total 0 1080 Output Total 0 Balance 0 -990 Weight 119.748 kg 118.841 kg Intake: IV 0 0 Left Antecubital 0 0 Oral 1080 Output: Urine 2069 Other: Voiding Method Bedside Commode Bedside Commode # Bowel Movements 0 General: Alert, Oriented to Person, Oriented to Place, Oriented to Time, Cooperative, No acute distress Neck: Supple, No JVD, No thyromegaly Lungs: Clear to auscultation, Normal air movement, Speaks full Sentences, Wheezes (exipiratory, mild. Improved over last noc) Cardiovascular: Regular rate (on monitor), Normal S1, Normal S2, No murmurs Abdomen: Normal bowel sounds, Soft, No tenderness Extremities: No clubbing, No cyanosis, Other (trace) Skin: Normal, [place], Warm - Results Results: Laboratory Results WBC 7.20 K/ul (4.00-12.00) 07/31/19 06:00 RBC 4.96 M/ul (3.90-5.20) 07/31/19 06:00 Hgb 13.9 g/dL (11.5-16.0) 07/31/19 06:00 Hct 42.7 % (34.5-46.5) 07/31/19 06:00 MCV 86.0 fl (80.0-100.0) 07/31/19 06:00 MCH 28.1 pg (28.0-34.0) 07/31/19 06:00 MCHC 32.6 g/dL (30.0-36.0) 07/31/19 06:00 RDW 11.6 % (11.3-14.3) 07/31/19 06:00 Plt Count 217 K/mm3 (130-400) 07/31/19 06:00 Neut % (Auto) 90.2 % (39.0-79.0) H 07/31/19 06:00 Lymph % (Auto) 7.8 % (16.0-50.0) L 07/31/19 06:00 [place] % (Auto) 0.8 % (0.0-11.0) 07/31/19 06:00 Eos % (Auto) 1.0 % (0.0-6.8) 07/31/19 06:00 Baso % (Auto) 0.2 % (0.0-1.5) 07/31/19 06:00 Neut # (Auto) 6.5 # k/uL (1.4-7.7) 07/31/19 06:00 Lymph # (Auto) 0.6 # k/uL (0.6-4.0) 07/31/19 06:00 [place] # (Auto) 0.1 # k/uL (0.0-0.9) 07/31/19 06:00 Eos # (Auto) 0.1 # k/uL (0.0-0.6) 07/31/19 06:00 Baso # (Auto) 0.0 # k/uL (0.0-0.5) 07/31/19 06:00 Seg Neutrophils % 96 % (39-79) H 07/31/19 06:00 Lymphocytes % 3 % (16-50) L 07/31/19 06:00 Monocytes % 1 % (0-11) 07/31/19 06:00 Plt Morphology Comment Normal (NORMAL) 07/31/19 06:00 RBC Morph Comment Normal (NORMAL) 07/31/19 06:00 Sodium 139 mmol/L (137-145) 07/31/19 06:00 Potassium 3.3 mmol/L (3.5-5.1) L 07/31/19 06:00 Chloride 95 mmol/L (98-107) L 07/31/19 06:00 Carbon Dioxide 31 mmol/L (22-30) H 07/31/19 06:00 Anion Gap 16.3 07/31/19 06:00 BUN 16 mg/dL (7-17) 07/31/19 06:00 Creatinine 1.07 mg/dL (0.52-1.04) H 07/31/19 06:00 Estimated Creat Clear 137 07/31/19 06:00 Est GFR ( Amer) > 60 (60-) 07/31/19 06:00 Est GFR (Non-Af Amer) > 60 (60-) 07/31/19 06:00 Glucose 324 mg/dL (74-106) H 07/31/19 06:00 Calcium 8.4 mg/dL (8.4-10.2) 07/31/19 06:00 Total Bilirubin 0.3 mg/dL (0.2-1.3) 07/31/19 06:00 AST 36 U/L (15-46) 07/31/19 06:00 ALT 18 U/L (0-35) 07/31/19 06:00 Alkaline Phosphatase 103 U/L (38-126) 07/31/19 06:00 NT-Pro-B Natriuret Pep 1358.9 pg/mL (15.0-125.5) H 07/31/19 06:00 Total Protein 7.6 g/dL (6.3-8.2) 07/31/19 06:00 Albumin 3.8 g/dL (3.5-5.0) 07/31/19 06:00 Assessment/Plan - Assessment/Plan (1) Acute exacerbation of COPD with asthma Status: Acute Current Visit: Yes Assessment: improved (2) Obstructive sleep apnea Status: Chronic Current Visit: Yes Assessment: stable (3) Essential hypertension Status: Chronic Current Visit: Yes Assessment: better, restarted on lisinopril (4) History of atrial fibrillation Status: Resolved Current Visit: Yes Assessment: NSR on monitor (5) Diabetes type 2, controlled Status: Chronic Current Visit: Yes Qualifiers: Diabetes mellitus senior living insulin use: without ferry terminal agent use Diabetes mellitus complication status: without complication Qualified Code(s): E11.9 - Type 2 diabetes mellitus without complications Assessment: Blood sugars elevated, will start on sliding scale. Probably due to steroids, A1c pending (6) Hx of acute congestive heart failure Status: Acute Current Visit: Yes Assessment: improved, will recheck Chest x-ray
[2019-07-31] MEDS ORDERED: INSULIN REGULAR, HUMAN 100 UNIT/ML 10ML VIAL SQ SCH (12:00)
--- NOTE | 2019-07-31 13:12 | Discharge Summary ---
Discharge Summary - Discharge [facility] Admission Date: 07/30/19 (Acute) Discharge Date: 07/31/19 (Transfer [facility]) Discharge To: Other ([facility]) History of Present Illness: 49yo female who states that she has a history of COPD, CHF, asthma, atrial fibrillation, diabetes type 2, hypertension, and chronic bronchitis. She had chronic dyspnea with exertion. Patient states that she started to have some increasing SOB and dyspnea over the last 24 hours. Patient states that she has been having some mild productive cough of clear to green phlegm. No blood noted. Patient denies any chest pain or pressure. No orthopnic symptoms noted. Patient has had some wheezing over the last 12 hours. Patient present to ED with pulse ox of 85-87% on room air. She was given several HFN treatments and given IV steroids. She has some improvement of breathing but was not able to maintain SAo2 > 88% on room air. Patient was admitted to hospital for further evaluation and treatment. Condition at Discharge: Stable Home Medications: Ambulatory Orders Medication Instructions Recorded Amlodipine Besylate/Benazepril 10 mg PO DAILY 01/30/18 [Amlodipine-Benazepril 5-10 mg] Furosemide [Lasix] 40 mg PO DAILY 01/30/18 Lisinopril [Zestril] 40 mg PO D 01/30/18 Metformin HCl [Glumetza] 500 mg PO BID 01/30/18 Metoprolol Tartrate [Lopressor] 100 mg PO BID 01/30/18 Warfarin Sodium [Coumadin] 2.5 mg PO DAILY 01/30/18 Consultations this Visit: None Procedures this Visit: None Allergies/Adverse Reactions: Allergies Allergy/AdvReac Type Severity Reaction Status Date / Time No Known Allergies Allergy Verified 07/30/19 18:46 Patient Problems: Current Active Problems Problem Status Onset Acute exacerbation of COPD with asthma Acute Hx of acute congestive heart failure Acute Diabetes type 2, controlled Chronic Essential hypertension Chronic Obstructive sleep apnea Chronic Discharge Summary: Patient was started on IV steroids and HFN of duoneb. Patient was felt to have bronchitis and had blood cultures done and started on IV abx of azithromycin. Patient was maintained on supplemental oxygen at 3 L/nc. Patient was also started on IV lasix for mild pulmonary congestion on chest x-ray and elevated BNP. Patient states that she was feeling much better 8 hours later and was tapered down to 1 liter of oxygen. Patient states that her breathing was better, she denies any chest pain or pressure. She has remained in NSR since admission. Blood sugar on admission was normal but by the AM was high in the 300s. A1c was 5.5. Patient was started on sliding scale insulin. Patient requested to be transferred to the [facility] shortly after admission. However no bed was available. Today patient still requests to be transferred and a bed had become available. Patient has been off of all of her medications for at least several months and longer for some of them. Patient states that she has not been able to afford them. She was on Medicaid at one time. A social service consult was obtained. At the time of transfer P 98, R 20, BP 164/77, SAo2 93% on 1 liter. - Final Diagnosis (1) Acute exacerbation of COPD with asthma Problems: improved, SAo2 drops to 87% with ambulation, still has some mild wheezing but improved (3) Essential hypertension Problems: started on Lisinopril (4) History of atrial fibrillation Problems: NSR at this time. Anticoagulation therapy was NOT restarted at this time. (5) Diabetes type 2, controlled Problems: A1c 5.5, appears to be steroid induced hyperglycemia (6) Hx of acute congestive heart failure Problems: ECHO has not been done
[2019-07-31 13:54] VITALS: BP 169/103
[2019-07-31] MEDS ORDERED: LISINOPRIL 10 MG TABLET PO SCH (14:00)
[2019-08-01] MEDS ORDERED: LISINOPRIL 20 MG TABLET PO SCH (09:00)
== END 2019-07-31 13:45 | disposition short-term general hospital (02) | DRG 192 ==
LOC: SOUTH 19:30
PROVIDERS: ADMIT Family Medicine; ATTEND Family Medicine
DX: J44.1 Chronic obstructive pulmonary disease with (acute) exacerbation (principal); G47.33 Obstructive sleep apnea (adult) (pediatric); I48.91 Unspecified atrial fibrillation; I11.0 Hypertensive heart disease with heart failure; I50.9 Heart failure, unspecified; M19.90 Unspecified osteoarthritis, unspecified site; E11.65 Type 2 diabetes mellitus with hyperglycemia; F17.210 Nicotine dependence, cigarettes, uncomplicated; T38.0X5A Adverse effect of glucocorticoids and synthetic analogues, initial encounter; Z79.01 Long term (current) use of anticoagulants; Z79.84 Long term (current) use of oral hypoglycemic drugs; Z79.899 Other long term (current) drug therapy; Y92.239 Unspecified place in hospital as the place of occurrence of the external cause
CPT/HCPCS: 36415; 71046; 80053; 83036; 83880; 85025; J0456; J1650; J1815; J1940; J2920; J7050; 99222; 99238; J1030